=== PATIENT | female | born 1930 | race Two or more races ===

== ENCOUNTER 2021-03-30 23:11 | Emergency (ER) | payer MEDICARE, OTHER ==
[~2021-03-30] VITALS: Ht 167.6 cm; Wt 54.4 kg
--- NOTE | 2021-03-30 23:17 | NUR ---
BIBRA WITH C/O GLF +HEMATOMA ON RIGHT FOREHEAD -KO - DIZZINESS -NAUSEA. PT A/OX4; NO AMS. TOLERATING R/A WELL. DENIES HITTING OTHER PART OF HER BODY. DOES NOT REMEMBER WHAT TIME SHE FELL. CONNECTED TO POX AND BEAMER HAND
--- NOTE | 2021-03-30 23:50 | NUR ---
DAUGHTER AT BEDSIDE
--- NOTE | 2021-03-31 00:23 | NUR ---
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
--- NOTE | 2021-03-31 00:23 | NUR ---
TX TO HEMATOMA ON RIGHT SIDE OF FOREHEAD DONE
[2021-03-31 00:32] LABS: BASOPHILS % (AUTO) 0.1 % (0.0-2.0); EOSINOPHILS % (AUTO) 1.4 % (0.0-6.0); HEMATOCRIT 37 % (33-45); HEMOGLOBIN 12.1 g/dL (11.5-14.8); LYMPHOCYTES # (AUTO) 1.2 K/uL (0.8-4.8); LYMPHOCYTES % (AUTO) 22.8 % (20.0-44.0); MEAN CORPUSCULAR HGB CONC 33 g/dl (31.0-36.0); MEAN CORPUSCULAR VOLUME 97 fL (82-100); MONOCYTES # (AUTO) 0.4 K/uL (0.1-1.30); MONOCYTES % (AUTO) 7.3 % (2.0-12.0); NEUTROPHILS # (AUTO) 3.7 K/uL (1.8-8.9); NEUTROPHILS % (AUTO) 68.4 % (43.0-81.0); PLATELET COUNT (AUTO) 290 K/uL (150-450); RED BLOOD CELL COUNT(AUTO) 3.76 MIL/uL (4.0-5.2); WHITE BLOOD COUNT (AUTO) 5.4 K/uL (4.3-11.0)
[2021-03-31 00:39] LABS: CARBON DIOXIDE 28 mmol/L (21-32); CHLORIDE 103 mmol/L (98-107); CREATININE 1.4 mg/dL (0.6-1.3); GLUCOSE 139 mg/dL (74-106); POTASSIUM 4.7 mmol/L (3.5-5.1); SODIUM SERUM 139 mmol/L (136-145); UREA NITROGEN, BLOOD 22 mg/dL (7-18)
[2021-03-31] MEDS ORDERED: AZIT250T13 PO (02:12)
[2021-03-31 02:36] VITALS: BP 138/70
== END 2021-03-31 02:37 | disposition home or self-care (01) ==
LOC: ER 23:15
DX: S00.83XA Contusion of other part of head, initial encounter (principal); R94.31 Abnormal electrocardiogram [ECG] [EKG]; I10 Essential (primary) hypertension; W01.0XXA Fall on same level from slipping, tripping and stumbling without subsequent striking against object, initial encounter; Y93.89 Activity, other specified; Y92.89 Other specified places as the place of occurrence of the external cause; Y99.8 Other external cause status
CPT/HCPCS: 36415; 70450-TC; 71045-TC; 72125-TC; 80048-TC; 84484-TC; 85025-TC